=== PATIENT | male | born 1985 | race Caucasian/White ===

== ENCOUNTER 2018-04-20 18:45 | Observation (INO) ==
[2018-04-20 19:20] LABS: Bilirubin,Urine Negative (Negative); Blood,Urine Negative (Negative); Clarity,Urine Cloudy (Clear); Color,Urine Yellow (Yellow); Glucose,Urine (UA) Normal (Normal); Ketones,Urine Negative (Negative); Leukocyte Esterase,Urine Negative (Negative); Nitrite,Urine Negative (Negative); Protein,Urine Trace mg/dL (Neg-Trace); Specific Gravity,Urine 1.015 (1.010-1.025); Urobilinogen,Urine Normal (Normal)
[2018-04-20 19:21] LABS: Bacteria,Urine None Seen per hpf (None-Few); Hyaline Casts,Urine None Seen per lpf (None-Few); RBC,Urine 0-3 per hpf (0-3); Squamous Epithelial Cell,Urine Few per lpf (None-Few); WBC,Urine 0-3 per hpf (0-3)
[2018-04-20 19:38] LABS: Basophils % 0.2 %; Eosinophils % 0.3 %; Hematocrit 48.3 % (37.5-50.1); Hemoglobin 16.3 g/dL (12.9-16.9); Immature Granulocytes % 0.4 % (0-4); Lymphocytes # 1.2 K/mcL (0.6-4.6); Lymphocytes % 7.6 %; Mean Corpuscular HGB Conc 33.7 g/dL (31.6-35.5); Mean Corpuscular Hemoglobin 29.4 pg (28.0-33.3); Mean Platelet Volume 9.7 fL (9.4-12.4); Monocytes # 0.9 K/mcL (0.0-1.3); Monocytes % 6.1 %; Neutrophils # 13.1 K/mcL (1.6-8.9); Platelet Count 306 K/mcL (140-400); Red Blood Count 5.55 M/mcL (4.19-5.50); Red Cell Distribution Width 12.5 % (11.5-14.5); Segmented Neutrophils % 85.4 %
[2018-04-20 19:57] LABS: Alanine Aminotransferase 22 Units/L (7-52); Albumin 4.4 g/dL (3.5-5.7); Albumin/Globulin Ratio 1.5 (1.1-2.2); Alkaline Phosphatase 64 Units/L (34-104); Aspartate Amino Transferase 16 Units/L (13-39); BUN/Creatinine Ratio 14 (6-26); Bilirubin,Direct 0.1 mg/dL (0.0-0.2); Bilirubin,Indirect 0.3 mg/dL (0.0-1.2); Bilirubin,Total 0.4 mg/dL (0.3-1.0); Blood Urea Nitrogen 13 mg/dL (6-20); Calcium 9.4 mg/dL (8.6-10.3); Carbon Dioxide 28 mEq/L (23-29); Chloride 103 mEq/L (98-107); Glucose 113 mg/dL (70-105); Lipase 17 Units/L (11-82); Osmolality,Calculated 293 (280-300); Sodium 141 mEq/L (136-145); Total Protein 7.4 g/dL (6.4-8.9); eGFR For Non-African Americans > 60 (> 60)
[2018-04-20] MEDS ORDERED: Ondansetron 4 MG/2 ML VIAL IVP ONE ×2 (20:42→23:57)
[2018-04-20] MEDS ORDERED: Isovue-370 500 ML BOTTLE IVP ONE (20:42)
[2018-04-20] MEDS ORDERED: Ketorolac 15 MG/ML VIAL IVP ONE (20:42)
[2018-04-20] MEDS ORDERED: 0.9 % Sodium Chloride 1,000 ML IVC ONE (20:43)
--- NOTE | 2018-04-20 20:46 | Emergency Department Note ---
Disposition Clinical Impression: Abdominal pain Qualifiers: Abdominal location: right lower quadrant Qualified Code(s): R10.31 - Right lower quadrant pain Disposition: Still a Patient General Adult HPI - General Chief complaint: ED Abdominal Pain Stated complaint: Lower abd pain Time Seen by Provider: 04/20/18 20:35 Nursing Notes Reviewed: Yes Vital Signs Reviewed: Yes - History of Present Illness HPI Narrative: Attestation note ED attending note I examined this patient and my medical decision-making was reviewed with the emergency medicine resident Dr. Tino Melgar . I agree with the documented findings, disposition and treatment plan as described except to the extent set forth below. Briefly: A 32-year-old male presents with 1-2 days suprapubic pain right lower quadrant getting worse with pressure pressures resolved he has rebound in the r ight lower quadrant with some voluntary guarding. Abdomen soft nondistended he is afebrile stable vital CBC shows a white count of 15,000 with no left shift chemistry panel within normal limits patient and abdominal pelvic CT with IV contrast. Acute appendicitis assign the differential. Disposition pending Pain Scale: 5 - Related Data Allergies Allergy/AdvReac Type Severity Reaction Status Date / Time No Known Allergies Allergy Verified 04/20/18 19:03 Course Vital Signs Temperature 98.8 F 04/20/18 18:59 Pulse Rate 92 04/20/18 18:59 Respiratory Rate 18 04/20/18 18:59 Blood Pressure 142/84 04/20/18 18:59 O2 Sat by Pulse Oximetry 97 04/20/18 18:59 Temperature 98.8 F 04/20/18 18:59 Pulse Rate 92 04/20/18 18:59 Respiratory Rate 18 04/20/18 18:59 Blood Pressure 142/84 04/20/18 18:59 O2 Sat by Pulse Oximetry 97 04/20/18 18:59 Oxygen Delivery Oxygen Delivery Room Air Medical Decision Making - Lab Data Result diagrams: 04/20/18 19:23 04/20/18 19:23 Lab Results 04/20/18 04/20/18 04/20/18 Range/Units 19:10 19:23 19:23 WBC 15.4 H (4.3-11.1) K/mcL RBC 5.55 H (4.19-5.50) M/mcL Hgb 16.3 (12.9-16.9) g/dL Hct 48.3 (37.5-50.1) % MCV 87.0 (83.0-100.0) fL MCH 29.4 (28.0-33.3) pg MCHC 33.7 (31.6-35.5) g/dL RDW 12.5 (11.5-14.5) % Plt Count 306 (140-400) K/mcL MPV 9.7 (9.4-12.4) fL Immature Gran % 0.4 (0-4) % Seg Neutrophils % 85.4 % Lymphocytes % 7.6 % Monocytes % 6.1 % Eosinophils % 0.3 % Basophils % 0.2 % Neutrophils # 13.1 H (1.6-8.9) K/mcL Lymphocytes # 1.2 (0.6-4.6) K/mcL Monocytes # 0.9 (0.0-1.3) K/mcL Eosinophils # 0.0 (0.0-0.6) K/mcL Basophils # 0.0 (0.0-0.2) K/mcL Sodium 141 (136-145) mEq/L Potassium 4.0 (3.5-5.1) mEq/L Chloride 103 (98-107) mEq/L Carbon Dioxide 28 (23-29) mEq/L BUN 13 (6-20) mg/dL Creatinine 0.96 (0.70-1.30) mg/dL Est GFR ( Amer) > 60 (> 60) Est GFR (Non-Af Amer) > 60 (> 60) BUN/Creatinine Ratio 14 (6-26) Glucose 113 H (70-105) mg/dL Calculated Osmolality 293 (280-300) Calcium 9.4 (8.6-10.3) mg/dL Total Bilirubin 0.4 (0.3-1.0) mg/dL Direct Bilirubin 0.1 (0.0-0.2) mg/dL Indirect Bilirubin 0.3 (0.0-1.2) mg/dL AST 16 (13-39) Units/L ALT 22 (7-52) Units/L Alkaline Phosphatase 64 (34-104) Units/L Serum Total Protein 7.4 (6.4-8.9) g/dL Albumin 4.4 (3.5-5.7) g/dL Globulin 3.0 (2.4-3.5) g/dL Albumin/Globulin Ratio 1.5 (1.1-2.2) Lipase 17 (11-82) Units/L Urine Color Yellow (Yellow) Urine Clarity Cloudy A (Clear) Urine pH 8.0 (5.0-8.0) pH Units Ur Specific [place] 1.015 (1.010-1.025) Urine Protein Trace (Neg-Trace) mg/dL Urine Glucose (UA) Normal (Normal) mg/dL Urine Ketones Negative (Negative) mg/dL Urine Blood Negative (Negative) Urine Nitrite Negative (Negative) Urine Bilirubin Negative (Negative) Urine Urobilinogen Normal (Normal) mg/dL Ur Leukocyte Esterase Negative (Negative) Urine Microscopic RBC 0-3 (0-3) per hpf Urine Microscopic WBC 0-3 (0-3) per hpf Ur Squamous Epith Cells Few (None-Few) per lpf Urine Bacteria None Seen (None-Few) per hpf Hyaline Casts None Seen (None-Few) per lpf Ur Culture Indicated? NO (NO)
--- NOTE | 2018-04-20 20:46 | Emergency Department Note ---
Disposition Clinical Impression: Abdominal pain Qualifiers: Abdominal location: right lower quadrant Qualified Code(s): R10.31 - Right lower quadrant pain Acute appendicitis Qualifiers: Acute appendicitis type: unspecified acute appendicitis type Qualified Code(s): K35.80 - Unspecified acute appendicitis Disposition: Still a Patient Condition: Good Referrals: NONE,PCP [Primary Care Provider] - Forms: ED Satisfaction Letter, Work/School Release Abdominal Pain HPI - General Chief Complaint: ED Abdominal Pain Stated Complaint: Lower abd pain Time Seen by Provider: 04/20/18 20:35 Source: patient Mode of arrival: ambulatory Limitations: no limitations Nursing Notes Reviewed: Yes Vital Signs Reviewed: Yes - History of Present Illness HPI Narrative: 32-year-old male presents for evaluation of abdominal pain. Patient states he h as had 2-3 days of lower abdominal pain. States that he did have some crampy pain primarily in his upper stomach and now feels that is more his lower stomach. Notes pain is worse with movement. States that it hurts when he bends over. Patient denies a nausea vomiting. That she does feel warm but does not have any documented fevers. No chest pain or shortness of breath. No dysuria or hematuria. No testicular tenderness. No rashes. States he has never had this pain before. No diversion of appetite. NPO since noon. Pain Scale: 5 - Related Data Allergies Allergy/AdvReac Type Severity Reaction Status Date / Time No Known Allergies Allergy Verified 04/20/18 19:03 All systems ED: reviewed and negative except as stated. Constitutional: Denies: fever Cardiovascular: Denies: chest pain Respiratory: Denies: cough, dyspnea Gastrointestinal: Reports: abdominal pain. Denies: nausea, vomiting Genitourinary: Denies: urgency, dysuria Physical Exam - General Limitations: no limitations General appearance: alert, in no apparent distress - Head Head exam: atraumatic, normocephalic, normal inspection - Eye Eye exam: Present: normal appearance - ENT ENT exam: normal exam, normal oropharynx, mucous membranes moist - Neck Neck exam: Present: normal inspection - Chest Chest inspection: Present: normal inspection, symmetric chest wall rise - Respiratory Respiratory exam: Present: normal lung sounds bilaterally. Absent: respiratory distress - Cardiovascular Cardiovascular exam: Present: regular rate, normal rhythm - Abdominal Exam Abdominal exam: Present: tenderness, rebound (RLQ), tenderness at McBurney's Point - Extremities Exam Extremities exam: Present: normal inspection. Absent: pedal edema - Back Exam Back exam: Present: normal inspection - Neurological Exam Neurological exam: Present: alert, oriented X3, CN II-XII intact - Skin Skin exam: Present: warm, dry, intact, normal color Course Course Narrative: Patient's labs are from triage. Patient will get CT scan abdomen pelvis appropriate pain control. - Reevaluation(s) Reevaluation #1: Review abdominal exam is unremarkable. Patient stated his pain is controlled. Awaiting CT. Time: 21:45 Reevaluation #2: Repeat exam is unremarkable. Patient's CT scan shows concerns of acute appendicitis. Time: 22:26 Vital Signs Temperature 98.8 F 04/20/18 18:59 Pulse Rate 92 04/20/18 18:59 Respiratory Rate 18 04/20/18 18:59 Blood Pressure 142/84 04/20/18 18:59 O2 Sat by Pulse Oximetry 97 04/20/18 18:59 Temperature 98.8 F 04/20/18 20:47 Pulse Rate 92 04/20/18 20:47 Respiratory Rate 18 04/20/18 20:47 Blood Pressure 142/84 04/20/18 20:47 O2 Sat by Pulse Oximetry 97 04/20/18 20:47 Oxygen Delivery Oxygen Delivery Room Air Abdominal Pain - MDM Narrative Medical decision making narrative: Patient presented for concerns of abdominal pain. Concerns initially for appendicitis with the patient's lower abdominal tenderness. Did have migratory pain that started more in the epigastrium now on the lower abdomen. Tenderness over McBurney's. Patient does not white count. Patient was describing more pain with movement. Patient symptoms controlled the ED. patient CT scan shows acute uncomplicated appendicitis. Discussed the case with the on-call surgeon who will place orders and see the patient the morning. This time the patient's pain is controlled. Abdomen is soft and repeat evaluation. - Lab Data Lab results reviewed: Yes I reviewed the patient's lab results. Result diagrams: 04/20/18 19:23 04/20/18 19:23 Lab Results 04/20/18 04/20/18 04/20/18 Range/Units 19:10 19:23 19:23 WBC 15.4 H (4.3-11.1) K/mcL RBC 5.55 H (4.19-5.50) M/mcL Hgb 16.3 (12.9-16.9) g/dL Hct 48.3 (37.5-50.1) % MCV 87.0 (83.0-100.0) fL MCH 29.4 (28.0-33.3) pg MCHC 33.7 (31.6-35.5) g/dL RDW 12.5 (11.5-14.5) % Plt Count 306 (140-400) K/mcL MPV 9.7 (9.4-12.4) fL Immature Gran % 0.4 (0-4) % Seg Neutrophils % 85.4 % Lymphocytes % 7.6 % Monocytes % 6.1 % Eosinophils % 0.3 % Basophils % 0.2 % Neutrophils # 13.1 H (1.6-8.9) K/mcL Lymphocytes # 1.2 (0.6-4.6) K/mcL Monocytes # 0.9 (0.0-1.3) K/mcL Eosinophils # 0.0 (0.0-0.6) K/mcL Basophils # 0.0 (0.0-0.2) K/mcL Sodium 141 (136-145) mEq/L Potassium 4.0 (3.5-5.1) mEq/L Chloride 103 (98-107) mEq/L Carbon Dioxide 28 (23-29) mEq/L BUN 13 (6-20) mg/dL Creatinine 0.96 (0.70-1.30) mg/dL Est GFR ( Amer) > 60 (> 60) Est GFR (Non-Af Amer) > 60 (> 60) BUN/Creatinine Ratio 14 (6-26) Glucose 113 H (70-105) mg/dL Calculated Osmolality 293 (280-300) Calcium 9.4 (8.6-10.3) mg/dL Total Bilirubin 0.4 (0.3-1.0) mg/dL Direct Bilirubin 0.1 (0.0-0.2) mg/dL Indirect Bilirubin 0.3 (0.0-1.2) mg/dL AST 16 (13-39) Units/L ALT 22 (7-52) Units/L Alkaline Phosphatase 64 (34-104) Units/L Serum Total Protein 7.4 (6.4-8.9) g/dL Albumin 4.4 (3.5-5.7) g/dL Globulin 3.0 (2.4-3.5) g/dL Albumin/Globulin Ratio 1.5 (1.1-2.2) Lipase 17 (11-82) Units/L Urine Color Yellow (Yellow) Urine Clarity Cloudy A (Clear) Urine pH 8.0 (5.0-8.0) pH Units Ur Specific [place] 1.015 (1.010-1.025) Urine Protein Trace (Neg-Trace) mg/dL Urine Glucose (UA) Normal (Normal) mg/dL Urine Ketones Negative (Negative) mg/dL Urine Blood Negative (Negative) Urine Nitrite Negative (Negative) Urine Bilirubin Negative (Negative) Urine Urobilinogen Normal (Normal) mg/dL Ur Leukocyte Esterase Negative (Negative) Urine Microscopic RBC 0-3 (0-3) per hpf Urine Microscopic WBC 0-3 (0-3) per hpf Ur Squamous Epith Cells Few (None-Few) per lpf Urine Bacteria None Seen (None-Few) per hpf Hyaline Casts None Seen (None-Few) per lpf Ur Culture Indicated? NO (NO) S.B.ATom - sIsa Situation: Demographics Background: Presenting Complaint Assessment: Vital Signs, Course and respsone to treatment, Patient/Family Expectation Recommendation: Barrier(s) to disposition, Recommendation based on pending studies, treatments, or consults S.B.A.Chata Report Given to: Dr. Violet Parsons Repor Time: 22:25
[2018-04-20] MEDS ORDERED: Piperacillin/Tazobactam 3.375 GM in 0.9 % Sodium Chloride Mini Bag 100 ML IVPB ONE (22:16)
[2018-04-20] MEDS ORDERED: Ketorolac 30 MG/ML VIAL IVP PRN (22:29)
[2018-04-20] MEDS ORDERED: OXYCODONE Oral CONC 10 MG/0.5 ML ORAL.SYG SL PRN (22:29)
[2018-04-20] MEDS ORDERED: Ondansetron ODT 4 MG TAB.RAPDIS SL PRN (22:29)
[2018-04-20] MEDS ORDERED: D5% in 0.45% NACL w KCl 20 MEQ/1,000 ML MLS IVC SCH (22:30)
--- NOTE | 2018-04-20 22:56 | Anesthesia Evaluation PreOp ---
Date of Encounter: 04/20/18 Time of Encounter: 22:56 - Past History Planned Operation: lap. 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 Other Medical History: Denies Any Significant HX Anesthesia History: No Prior Anesthetic Complications, Past Anesthesia (none) Alcohol Use: none Drug use: none Medications and Allergies Allergy/AdvReac Type Severity Reaction Status Date / Time No Known Allergies Allergy Verified 04/20/18 19:03 - Meds/Allergy Pre-op Review Medications Reviewed: Yes Allergies Reviewed: Yes Beta Blockers on Current Med List: No Anesthesia Results - Labs 04/20/18 19:23 04/20/18 19:23 Anesthesia Exam O2 Sat Height 1.85 m Height 1.85 m Weight 84.459 kg Weight 84.459 kg O2 Sat by Pulse Oximetry 97 O2 Sat by Pulse Oximetry 97 O2 Sat by Pulse Oximetry 97 Vital Signs Temp Pulse Resp BP Pulse Ox 98.8 F 92 18 142/84 97 04/20/18 18:59 04/20/18 18:59 04/20/18 18:59 04/20/18 18:59 04/20/18 18:59 NPO (# of Hours): > 8 hrs Pain Scale: 0 Pain Scale Used: Numeric (1 - 10) - HEENT Pupil (Motor): Pupils equal, EOMI Mallampati: I Teeth: Normal Oral Opening: Greater than 3 - [employer]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
[2018-04-20] MEDS ORDERED: *HR* Propofol 200 MG/20 ML VIAL IVP ONE (23:05)
[2018-04-20] MEDS ORDERED: *HR* FentaNYL (PF) 100 MCG/2 ML VIAL ONE (23:05)
--- NOTE | 2018-04-20 23:25 | General Surg History&Physical ---
Date of Encounter: 04/20/18 Time of Encounter: 23:23 Assessment and Plan (1) Acute appendicitis Current Visit: Yes Status: Acute 32M with acute appendicitis; NPO IVF IV abx pain control admit with plan to go to OR tonight; The assessment and plan as outlined above was discussed with the patient and/or family members who expressed understanding and agreement. All questions were answered. Qualifiers: Acute appendicitis type: with localized peritonitis Appendicitis gangrene presence: without gangrene Appendicitis perforation presence: without perforation Appendicitis abscess presence: without abscess Qualified Code(s): K35.30 - Acute appendicitis with localized peritonitis, without perforation or gangrene History of Present Illness Chief complaint: abdominal pain HPI: Mr. Uribe is a 32 year old male otherwise healthy with 3 day history of worsening RLQ abdominal pain. The pain is non radiating with no identifiable alleviating or exacerbating factors. No identifiable precipitating factors. 8/10 on pain scale. Associated nausea and vomiting, no fevers, chills, chest pain, nor shortness of breath. A CT Scan was obtained, which was reviewed and interpreted by me, which demonstrated acute appendicitis. Past Med Surg Social Fam HX - Past Medical History Medical history: no medical history Psychiatric history: no psych history - Past Surgical History Surgical History: no surgical history - Social History Smoking Status: Never smoker Alcohol use: none Drug use: none - Additional Family History Additional family history: non contributory Medications and Allergies Allergy/AdvReac Type Severity Reaction Status Date / Time No Known Allergies Allergy Verified 04/20/18 19:03 Review of Systems All systems PM: 12 point ROS negative besides HPI findings General Surgery Exam Initial Vital Signs Temp Pulse Resp BP Pulse Ox 98.8 F 92 18 142/84 97 04/20/18 18:59 04/20/18 18:59 04/20/18 18:59 04/20/18 18:59 04/20/18 18:59 - General physical appearance no distress - Eyes normal ocular movement - ENT normocephalic - Neck trachea midline, no lymphadectomy - Respiratory normal expansion, normal respiratory effort - Cardiovascular Cardiovascular exam: Present: RRR - Abdomen Abdomen general surgery: Present: soft, tender Abdominal Tenderness: Present: RLQ - Integumentary Integumentary general surgery: Present: warm and dry - Neurologic Present: CN 2-12 grossly intact - Musculoskeletal Present: normal posture - Psychiatric Psychiatric general surgery: Present: A&Ox3 Results - Labs 04/20/18 19:23 04/20/18 19:23 Abnormal lab results WBC 15.4 K/mcL (4.3-11.1) H 04/20/18 19:23 RBC 5.55 M/mcL (4.19-5.50) H 04/20/18 19:23 Neutrophils # 13.1 K/mcL (1.6-8.9) H 04/20/18 19:23 Glucose 113 mg/dL (70-105) H 04/20/18 19:23 Urine Clarity Cloudy (Clear) A 04/20/18 19:10 Diabetes panel 04/20/18 Range/Units 19:23 Sodium 141 (136-145) mEq/L Potassium 4.0 (3.5-5.1) mEq/L Chloride 103 (98-107) mEq/L Carbon Dioxide 28 (23-29) mEq/L BUN 13 (6-20) mg/dL Creatinine 0.96 (0.70-1.30) mg/dL Glucose 113 H (70-105) mg/dL Calcium 9.4 (8.6-10.3) mg/dL AST 16 (13-39) Units/L ALT 22 (7-52) Units/L Alkaline Phosphatase 64 (34-104) Units/L Albumin 4.4 (3.5-5.7) g/dL Calcium panel 04/20/18 Range/Units 19:23 Calcium 9.4 (8.6-10.3) mg/dL Albumin 4.4 (3.5-5.7) g/dL Pituitary panel 04/20/18 Range/Units 19:23 Sodium 141 (136-145) mEq/L Potassium 4.0 (3.5-5.1) mEq/L Chloride 103 (98-107) mEq/L Carbon Dioxide 28 (23-29) mEq/L BUN 13 (6-20) mg/dL Creatinine 0.96 (0.70-1.30) mg/dL Glucose 113 H (70-105) mg/dL Calcium 9.4 (8.6-10.3) mg/dL Adrenal panel 04/20/18 Range/Units 19:23 Sodium 141 (136-145) mEq/L Potassium 4.0 (3.5-5.1) mEq/L Chloride 103 (98-107) mEq/L Carbon Dioxide 28 (23-29) mEq/L BUN 13 (6-20) mg/dL Creatinine 0.96 (0.70-1.30) mg/dL Glucose 113 H (70-105) mg/dL Calcium 9.4 (8.6-10.3) mg/dL Total Bilirubin 0.4 (0.3-1.0) mg/dL AST 16 (13-39) Units/L ALT 22 (7-52) Units/L Alkaline Phosphatase 64 (34-104) Units/L Albumin 4.4 (3.5-5.7) g/dL All other labs normal. - Imaging CT scan - abdomen: report reviewed, image reviewed CT scan - pelvis: report reviewed, image reviewed
[2018-04-20] MEDS ORDERED: *HR* HYDROmorphone (PF) 1 MG/ML SYRINGE IVP PRN (23:57)
[2018-04-20] MEDS ORDERED: Ketorolac 30 MG/ML VIAL IVP ONE (23:57)
[2018-04-20] MEDS ORDERED: *HR* Labetalol 20 MG/4 ML SYRINGE IVP PRN (23:57)
[2018-04-20] MEDS ORDERED: *HR* Promethazine 25 MG/ML VIAL IVP PRN (23:57)
[2018-04-20] MEDS ORDERED: *HR* OxyCODONE Immed Rel 5 MG TABLET PO PRN (23:57)
[2018-04-21] MEDS ORDERED: *HR* FentaNYL (PF) 100 MCG/2 ML VIAL ONE (00:37)
[2018-04-21] MEDS ORDERED: Neostigmine Methylsulfate 3 MG/3 ML SYRINGE ONE (01:11)
--- NOTE | 2018-04-21 01:58 | Operative Note ---
Date of procedure: 04/21/18 Pre-op diagnosis: acute appendicitis Post-op diagnosis: same Procedure: laparoscopic appendectomy Implants: none Complications: none Anesthesia: GETA Local Anesthetics: 0.5% Sensorcaine HCL SubQ (cc) Surgeon: Vu Lazo Was there an grooming assistant present: No Estimated blood loss (cc): 10 Specimen: appendix Condition: stable Disposition: PACU Procedure in Detail: The patient was brought into the operating room suite. The patient was placed in the supine position. Mechanical DVT prophylaxis was initiated. The patient underwent smooth induction of general endotracheal anesthesia. The patient was prepped and draped in the usual fashion. Preoperative antibiotics were given. A timeout was held identifying the correct patient, pathology, and procedure. Everyone was in agreement and we began a procedure. Incision to Mesenteric Window I started bycreating a supraumbilical incision and via open Salcedo technique entered into the abdomen. I then used a Vicryl suture on a UR 6 needle in a [id number] fashion to reapproximate but not close the fascia. I then inserted the 10 trocar followed by the camera to visualize the intraabdominal cavity. I then created a 5 mm incision suprapubically and inserted the 5 mm trocar under direct visualization. Roughly 1 handbreadth lateral to the umbilical incision I created another 5 mm incision and inserted another 5 mm tro car under direct visualization. I then inserted the nontraumatic instruments into the 5 mm ports and began the procedure. I was able to identify the tinea coli coalescing at the base of the cecum to identify the appendix. Using the nontraumatic grasper I was able to grasp the appendix and then using the [place] dissector was able to create a mesenteric window. Mesenteric Window to Appendectomy I then inserted the nontraumatic grasper into the same mesenteric window to widen it. I then grasped the appendix and switched from the 10 mm camera to the 5 mm camera so that we can insert the stapler through the umbilical port. The teeth of the stapler through the mesenteric window. It should be stated that the stapler was a 45 mm bowel load stapler. It was positioned at the base of th e appendix and I was able to confirm under direct visualization that the teeth contained no other structures such as the cecum. I then fired the stapler and resected the appendix from the base of the cecum. I then loaded up a vascular load stapler and then in the similar fashion did fire across the mesentery. Retrieval to Closure I then inserted the Endo Catch bag to retrieve the specimen which was intact upon retrieval. I then switched back to the 10 mm camera and inserted the nontraumatic grasper as well as a suction-system configuration specialist into the 5 mm ports. And under direct visualization I was able to appreciate the staple line of the mesoappendix as well as the staple line of the base of the cecum. There was no obvious leaking nor bleeding. The pelvis did not have any collection of fluid. I then concluded the procedure, turned off the insufflation, removed the trochars under direct visualization, and then closed the umbilical fascia using the Vicryl suture that was placed at the beginning. I then closed all incisions with interrupted 4-0 Monocryl. And then sealed with Dermabon. It should be stated that I did use 0.5% Marcaine as a local anesthetic. The patient tolerated the procedure well and did go back to PACU in stable condition.
[2018-04-21] MEDS ORDERED: D5% in 0.45% NACL w KCl 20 MEQ/1,000 ML MLS IVC SCH (02:02)
[2018-04-21] MEDS ORDERED: Ondansetron ODT 4 MG TAB.RAPDIS SL PRN (02:02)
--- NOTE | 2018-04-21 02:28 | Anesthesia Evaluation Post Op ---
Date of Encounter: 04/21/18 Time of Encounter: 02:15 - Vital Signs Vital Signs: Vital Signs/O2 Sat, Most Current Temp Pulse Resp BP Pulse Ox 97.9 F 64 14 130/84 98 04/21/18 02:08 04/21/18 02:08 04/21/18 02:08 04/21/18 02:08 04/21/18 02:08 - Lungs Lungs: Clear Ascult./Percussion - Airway Airway: Non-obstructed - Cardiovascular Regular Rate - Mental Status Mental Status: Alert & Oriented, Answers Appropriately - Pain Pain Scale: 0 Pain Scale used: Numeric (1 - 10) - Nausea Vomiting Nausea Vomiting: Not Present - Hydration Hydration: Ice chips, Has not voided - Discharge PostOp Status: Transfer Patient to floor
[2018-04-21] MEDS: OXYCODONE Oral CONC 10 MG/0.5 ML ORAL.SYG SL PRN ×2 (02:33→06:41)
[2018-04-21] MEDS ORDERED: Piperacillin/Tazobactam 3.375 GM in 0.9 % Sodium Chloride Mini Bag 100 ML IVPB SCH (08:00)
--- NOTE | 2018-04-21 09:59 | Discharge Summary ---
<Vickie Aranda L - Last Filed: 04/21/18 12:10> Orders not resulted at time of discharge: Pending orders 04/21/18 01:11 Surgical Pathology [PTH] Routine Date of Encounter: 04/21/18 Time of Encounter: 12:14 - Discharge Diagnosis (1) Acute appendicitis Priority: Primary Status: Resolved Comments: Leukocytosis likely reactionary. No need for antibiotics Qualifiers: Acute appendicitis type: with localized peritonitis Appendicitis gangrene presence: without gangrene Appendicitis perforation presence: without perforation Appendicitis abscess presence: without abscess Qualified Code(s): K35.30 - Acute appendicitis with localized peritonitis, without perforation or gangrene General Surgery Exam Initial Vital Signs Temp Pulse Resp BP Pulse Ox 98.8 F 92 18 142/84 97 04/20/18 18:59 04/20/18 18:59 04/20/18 18:59 04/20/18 18:59 04/20/18 18:59 Vital Signs Temp Pulse Resp BP Pulse Ox 04/21/18 11:43 98.3 F 92 13 150/76 96 04/21/18 08:03 98.3 F 99 14 135/74 95 04/21/18 07:03 86 136/76 99 04/21/18 05:55 80 129/72 96 04/21/18 04:55 96 129/71 98 04/21/18 04:25 81 126/80 97 04/21/18 03:50 85 114/74 97 04/21/18 03:23 79 123/86 98 04/21/18 02:53 68 126/79 04/21/18 02:38 97.6 F 76 16 129/79 96 04/21/18 02:08 97.9 F 64 14 130/84 98 04/21/18 01:58 77 18 129/73 98 04/21/18 01:48 63 18 131/76 98 04/21/18 01:38 97.6 F 83 18 148/81 97 04/20/18 22:51 74 16 112/73 97 04/20/18 20:47 98.8 F 92 18 142/84 97 04/20/18 18:59 98.8 F 92 18 142/84 97 Intake and Output 04/20/18 04/21/18 04/21/18 23:59 07:59 15:59 Intake Total 1000 / 1000 440 / 440 240 / 240 Output Total 560 / 560 Balance 1000 / 1000 -120 / -120 240 / 240 Intake: IV Fluids 1000 / 1000 100 / 100 0.9 % Sodium Chloride 1,000 ML 1000 / 1000 @ 999 mls/hr IVC .Q1H1M ONE Rx# :[id number] Zosyn 3.375 GM In 0.9 % Sodium 100 / 100 Chloride (Mini-Bag +) 100 ML @ 25 mls/hr IVPB ONCE ONE Rx#: [id number] Oral 340 / 340 240 / 240 Output: Urine 550 / 550 Estimated Blood Loss Other: Meal Breakfast Percent of Meal Consumed 100% Stool Characteristics Normal for Patient Stool Color Brown # Voids 1 Weight 84.459 kg VITAL SIGNS: Reviewed. See [facility] GENERAL: In no apparent distress. HEENT: Normocephalic, atraumatic, pupils are equal and reactive, extraocular motions intact, oropharynx is pink and moist, there is no neck adenopathy or JVD noted. CHEST/RESPIRATORY: The thorax is free from signs of trauma. Lung sounds: clear to auscultation, normal respiratory effort CARDIAC: Regular rate and rhythm. Normal S1 and S2, without murmurs, gallops, or rubs. VASCULAR: No Edema. 2+ peripheral pulses. ABDOMEN: soft, expected postoperative tenderness, active bowel sounds INCISION: Surgical incision is clean, dry, and intact. There are no signs of cellulitis or infection noted. MUSCULOSKELETAL: Good range of motion of all major joints. Extremities without clubbing, cyanosis or edema. NEUROLOGIC EXAM: Alert and oriented x 3. Speech normal. Follows commands. PSYCHIATRIC: Mood normal. SKIN: No rash or lesions. - Hospital Course Hospital course: Mr. Uribe is a 32 year old male who presented on 04/20/2018 for right lower quadrant pain. His exam and imaging were consistent with acute appendicitis. He was taken to the operating room where he underwent an uncomplicated laparoscopic appendectomy. His hospital course has been uncomplicated. He is ambulating avoiding without difficulty, tolerating a diet without nausea or vomiting, vital signs are stable and he is afebrile. We will begin discharge planning to home with a follow-up in approximately 2 weeks. - Time Spent with Patient Total time spent providing and/or coordinating discharge services: - Discharge Medications Prescriptions: Ondansetron ODT [Zofran ODT] 4 mg SL Q4HR PRN #15 tab.rapdis PRN Reason: Postsurgical nausea RX: OxyCODONE/APAP 5/325 [Percocet 5/325 MG] 1 each PO Q6HR PRN 7 Days #28 tablet PRN Reason: Pain Docusate Sodium [Colace] 100 mg PO BID PRN #30 capsule PRN Reason: Contstipation RX: Ibuprofen 800 mg PO Q8H PRN #30 tablet PRN Reason: Postsurgical pain Home Medications: Docusate Sodium [Colace] 100 mg PO BID PRN #30 capsule 04/21/18 [Rx] Ondansetron ODT [Zofran ODT] 4 mg SL Q4HR PRN #15 tab.rapdis 04/21/18 [Rx] RX: Ibuprofen 800 mg PO Q8H PRN #30 tablet 04/21/18 [Rx] RX: OxyCODONE/APAP 5/325 [Percocet 5/325 MG] 1 each PO Q6HR PRN 7 Days #28 tablet 04/21/18 [Rx] Allergies/Adverse Reactions: Allergy/AdvReac Type Severity Reaction Status Date / Time No Known Allergies Allergy Verified 04/21/18 08:07 Date of admission: 04/20/18 23:05 Primary care physician: PCP NONE Discharging clinician: Vu aranda) Anticipated date of discharge: 04/21/18 Labs on day of discharge: Labs from last 24 hours 04/20/18 04/20/18 04/20/18 19:23 19:23 19:10 WBC 15.4 H RBC 5.55 H Hgb 16.3 Hct 48.3 MCV 87.0 MCH 29.4 MCHC 33.7 RDW 12.5 Plt Count 306 MPV 9.7 Immature Gran % 0.4 Seg Neutrophils % 85.4 Lymphocytes % 7.6 Monocytes % 6.1 Eosinophils % 0.3 Basophils % 0.2 Neutrophils # 13.1 H Lymphocytes # 1.2 Monocytes # 0.9 Eosinophils # 0.0 Basophils # 0.0 Sodium 141 Potassium 4.0 Chloride 103 Carbon Dioxide 28 BUN 13 Creatinine 0.96 Est GFR ( Amer) > 60 Est GFR (Non-Af Amer) > 60 BUN/Creatinine Ratio 14 Glucose 113 H Calculated Osmolality 293 Calcium 9.4 Total Bilirubin 0.4 Direct Bilirubin 0.1 Indirect Bilirubin 0.3 AST 16 ALT 22 Alkaline Phosphatase 64 Serum Total Protein 7.4 Albumin 4.4 Globulin 3.0 Albumin/Globulin Ratio 1.5 Lipase 17 Urine Color Yellow Urine Clarity Cloudy A Urine pH 8.0 Ur Specific [place] 1.015 Urine Protein Trace Urine Glucose (UA) Normal Urine Ketones Negative Urine Blood Negative Urine Nitrite Negative Urine Bilirubin Negative Urine Urobilinogen Normal Ur Leukocyte Esterase Negative Urine Microscopic RBC 0-3 Urine Microscopic WBC 0-3 Ur Squamous Epith Cells Few Urine Bacteria None Seen Hyaline Casts None Seen Ur Culture Indicated? NO - Impressions ITS Impressions Abdomen/Pelvis CT 04/20/18 20:42 IMPRESSION: Acute, uncomplicated appendicitis. L5-S1 mild anterolisthesis. D/ / Gokul Oates MD / Gokul Oates MD Interpreting Provider: Gokul Oates MD - Patient Status Disposition: Home, Self-Care Condition: Good Functional capacity at discharge: independent ambulation Overall status at discharge: patient is progressing back to baseline - Discharge Instructions Instructions: Laparoscopic Appendectomy (DC) Follow Up With: NONE,PCP [Primary Care Provider] - Vu Lazo MD [Non-Partnered Physician] - 05/11/18 3:35 pm Forms: Inpatient Work/School Release Additional Instructions: General Surgical Discharge Instructions 1. No pushing, pulling, or lifting greater than 15 lbs for 2 weeks. 2. You may shower beginning today, but no tub baths, soaking, or swimming for 2 weeks. 3. You may resume driving when you are off narcotics and are safe to react in a car. 4. Take ibuprofen every 8 hours for discomfort. If this does not relieve discomfort, you may take the as needed Percocet. Take narcotics as directed. Do not take more narcotics then directed and do not share your narcotics with any other person. Do not drink alcohol while on narcotics. 5. Take stool softeners (Colace) or a water based laxative (Miralax) while taking narcotics. You may hold for loose stools. 6. Report any fevers greater than 100.5F, increase abdominal discomfort, drainage that looks like pus, increased redness or pain at the surgical site, or any vomiting. 7. Report any pain in the calves, shortness of breath, or rapid heartbeat. 8. Follow-up in the office as directed. 9. If you were prescribed antibiotics, do not stop them without talking to your provider. - Diet and Activity Activity: increase activity as tolerated Diet: advance to your usual diet <Vu Lazo Rainer - Last Filed: 04/21/18 12:46> Orders not resulted at time of discharge: Pending orders 04/21/18 01:11 Surgical Pathology [PTH] Routine Date of Encounter: 04/21/18 - Discharge Diagnosis (1) Acute appendicitis Status: Resolved Qualifiers: Acute appendicitis type: with localized peritonitis Appendicitis gangrene presence: without gangrene Appendicitis perforation presence: without perforation Appendicitis abscess presence: without abscess Qualified Code(s): K35.30 - Acute appendicitis with localized peritonitis, without perforation or gangrene General Surgery Exam Initial Vital Signs Temp Pulse Resp BP Pulse Ox 98.8 F 92 18 142/84 97 04/20/18 18:59 04/20/18 18:59 04/20/18 18:59 04/20/18 18:59 04/20/18 18:59 - Hospital Course Hospital course: Mr. Uribe is a 32 year old male - Time Spent with Patient Total time spent providing and/or coordinating discharge services: Date of admission: 04/20/18 23:05 Primary care physician: PCP NONE Labs on day of discharge: Labs from last 24 hours 04/20/18 04/20/18 04/20/18 19:23 19:23 19:10 WBC 15.4 H RBC 5.55 H Hgb 16.3 Hct 48.3 MCV 87.0 MCH 29.4 MCHC 33.7 RDW 12.5 Plt Count 306 MPV 9.7 Immature Gran % 0.4 Seg Neutrophils % 85.4 Lymphocytes % 7.6 Monocytes % 6.1 Eosinophils % 0.3 Basophils % 0.2 Neutrophils # 13.1 H Lymphocytes # 1.2 Monocytes # 0.9 Eosinophils # 0.0 Basophils # 0.0 Sodium 141 Potassium 4.0 Chloride 103 Carbon Dioxide 28 BUN 13 Creatinine 0.96 Est GFR ( Amer) > 60 Est GFR (Non-Af Amer) > 60 BUN/Creatinine Ratio 14 Glucose 113 H Calculated Osmolality 293 Calcium 9.4 Total Bilirubin 0.4 Direct Bilirubin 0.1 Indirect Bilirubin 0.3 AST 16 ALT 22 Alkaline Phosphatase 64 Serum Total Protein 7.4 Albumin 4.4 Globulin 3.0 Albumin/Globulin Ratio 1.5 Lipase 17 Urine Color Yellow Urine Clarity Cloudy A Urine pH 8.0 Ur Specific [place] 1.015 Urine Protein Trace Urine Glucose (UA) Normal Urine Ketones Negative Urine Blood Negative Urine Nitrite Negative Urine Bilirubin Negative Urine Urobilinogen Normal Ur Leukocyte Esterase Negative Urine Microscopic RBC 0-3 Urine Microscopic WBC 0-3 Ur Squamous Epith Cells Few Urine Bacteria None Seen Hyaline Casts None Seen Ur Culture Indicated? NO - Impressions ITS Impressions Abdomen/Pelvis CT 04/20/18 20:42 IMPRESSION: Acute, uncomplicated appendicitis. L5-S1 mild anterolisthesis. D/ / Gokul Oates MD / Gokul Oates MD Interpreting Provider: Gokul Oates MD - Attending Attestation patient seen and examined. i have reviewed all labs, imaging, and notes. i agree with the above assessment and plan
[2018-04-21 11:44] VITALS: BP 150/76
== END 2018-04-21 13:26 | disposition home or self-care (01) ==
LOC: 3BNU 18:45 → EMEROOARM 18:45 → 3BNU 23:34
PROVIDERS: ADMIT Surgery; ATTEND Surgery